=== PATIENT | female | born 1975 | race Caucasian/White ===

== ENCOUNTER 2023-12-06 09:30 | Inpatient (IN) | payer OTHER ==
[~2023-12-06] VITALS: Ht 154.9 cm; Wt 65.8 kg
[2023-12-06] MEDS ORDERED: MECLIZINE HCL 25 MG TABLET ONE (10:20)
[2023-12-06] MEDS ORDERED: ONDANSETRON HCL/PF 4 MG/2 ML VIAL ONE ×2 (10:20→10:40)
[2023-12-06] MEDS: MECLIZINE HCL 25 MG TABLET PO ONE (10:26)
[2023-12-06] MEDS: IV NS 0.9% 1,000 ML BAG IV ONE (10:26)
[2023-12-06] MEDS: ONDANSETRON HCL/PF - ER 4 MG/2 ML VIAL IV ONE (10:26)
[2023-12-06 10:42] LABS: BASOPHILS % (AUTO) 0.8 % (0.0-2.0); EOSINOPHILS # (AUTO) 0.2 K/uL (0.0-0.7); EOSINOPHILS % (AUTO) 3.7 % (0.0-6.0); HEMATOCRIT 39 % (33-45); HEMOGLOBIN 13.4 g/dL (11.5-14.8); LYMPHOCYTES # (AUTO) 1.2 K/uL (0.8-4.8); LYMPHOCYTES % (AUTO) 20.2 % (20.0-44.0); MEAN CORPUSCULAR HEMOGLOBIN 29 PG (26.0-33.0); MEAN CORPUSCULAR HGB CONC 34 g/dl (31.0-36.0); MEAN CORPUSCULAR VOLUME 84 fL (82-100); MONOCYTES # (AUTO) 0.4 K/uL (0.1-1.30); MONOCYTES % (AUTO) 7.1 % (2.0-12.0); NEUTROPHILS # (AUTO) 4.1 K/uL (1.8-8.9); NEUTROPHILS % (AUTO) 68.2 % (43.0-81.0); PLATELET COUNT (AUTO) 307 K/uL (150-450); RED BLOOD CELL COUNT(AUTO) 4.67 MIL/uL (4.0-5.2); RED CELL DISTRIBUTION WIDTH 12.7 % (11.5-15.0)
[2023-12-06 11:09] LABS: CALCIUM, SERUM 8.9 mg/dL (8.5-10.1); CARBON DIOXIDE 27 mmol/L (21-32); CHLORIDE 103 mmol/L (98-107); CREATININE 0.7 mg/dL (0.6-1.3); GLUCOSE 86 mg/dL (74-106); POTASSIUM 4.7 mmol/L (3.5-5.1); SODIUM SERUM 135 mmol/L (136-145); UREA NITROGEN, BLOOD 11 mg/dL (7-18)
[2023-12-06 11:23] LABS: ALANINE AMINOTRANSFERASE 31 U/L (12-78); ALBUMIN 3.6 g/dL (3.4-5.0); ALKALINE PHOSPHATASE 59 U/L (46-116); ASPARTATE AMINOTRANSFERASE 28 U/L (15-37); BILIRUBIN,DIRECT 0.1 mg/dL (0.0-0.2); BILIRUBIN,TOTAL 0.7 mg/dL (0.2-1.0); NT-PRO BNP 89 pg/mL (0-125); TOTAL PROTEIN, SERUM 7.6 g/dL (6.4-8.2)
[2023-12-06] MEDS ORDERED: ASPIRIN 325 MG TABLET ONE ×2 (12:30)
[2023-12-06] MEDS ORDERED: MAGNESIUM HYDROXIDE 30 ML UDC PO PRN (12:30)
[2023-12-06] MEDS ORDERED: ONDANSETRON HCL/PF 4 MG/2 ML VIAL IVP PRN (12:30)
[2023-12-06] MEDS ORDERED: MAG HYDROX/AL HYDROX/SIMETH 30 ML UDC PO PRN (12:30)
[2023-12-06] MEDS ORDERED: ACETAMINOPHEN 325 MG TABLET PO PRN (12:30)
[2023-12-06] MEDS ORDERED: ZOLPIDEM TARTRATE 5 MG TABLET PO PRN (12:30)
[2023-12-06] MEDS ORDERED: Z GUARD REMEDY 4 OZ OINT TP PRN (12:30)
[2023-12-06] MEDS: ASPIRIN 325 MG TABLET PO ONE (12:34)
[2023-12-06 14:20] VITALS: BP 126/67; TEMP 97.5; O2SAT 97
[2023-12-06] MEDS: IV NS 0.9% 1,000 ML IV PRN (15:17)
[2023-12-06 20:00] VITALS: BP 98/58; TEMP 98.6; O2SAT 97
[2023-12-07] VITALS: BP 109/69; TEMP 98; O2SAT 98
[2023-12-07 04:00] VITALS: BP 115/75; TEMP 97.8; O2SAT 96
[2023-12-07 07:29] LABS: BASOPHILS % (AUTO) 0.5 % (0.0-2.0); EOSINOPHILS # (AUTO) 0.2 K/uL (0.0-0.7); HEMATOCRIT 34 % (33-45); HEMOGLOBIN 11.8 g/dL (11.5-14.8); LYMPHOCYTES # (AUTO) 1.7 K/uL (0.8-4.8); LYMPHOCYTES % (AUTO) 25.3 % (20.0-44.0); MEAN CORPUSCULAR HEMOGLOBIN 29 PG (26.0-33.0); MEAN CORPUSCULAR HGB CONC 34 g/dl (31.0-36.0); MEAN CORPUSCULAR VOLUME 85 fL (82-100); MONOCYTES # (AUTO) 0.5 K/uL (0.1-1.30); MONOCYTES % (AUTO) 8.2 % (2.0-12.0); NEUTROPHILS # (AUTO) 4.2 K/uL (1.8-8.9); PLATELET COUNT (AUTO) 262 K/uL (150-450); RED BLOOD CELL COUNT(AUTO) 4.05 MIL/uL (4.0-5.2); RED CELL DISTRIBUTION WIDTH 12.5 % (11.5-15.0); WHITE BLOOD COUNT (AUTO) 6.7 K/uL (4.3-11.0)
[2023-12-07 07:59] LABS: CALCIUM, SERUM 8.1 mg/dL (8.5-10.1); CREATININE 0.6 mg/dL (0.6-1.3); MAGNESIUM 1.9 mg/dL (1.8-2.4); PHOSPHORUS 2.2 mg/dL (2.5-4.9); POTASSIUM 4.1 mmol/L (3.5-5.1)
[2023-12-07 08:00] VITALS: BP 105/67; TEMP 98.3; O2SAT 98
[2023-12-07] MEDS: ASPIRIN 81 MG TAB.CHEW PO SCH (08:54)
[2023-12-07 12:00] VITALS: BP 119/70; TEMP 98.5; O2SAT 98
[2023-12-07] MEDS ORDERED: IOHEXOL-350 100 ML VIAL IV ONE (14:50)
[2023-12-07] MEDS ORDERED: NITROGLYCERIN 0.4 MG/TAB BOTTLE ONE (14:52)
[2023-12-07] MEDS ORDERED: METOPROLOL TARTRATE INJ 5 MG/5 ML AMPUL ONE (14:54)
[2023-12-07] MEDS ORDERED: METOPROLOL TARTRATE INJ 5 MG/5 ML AMPUL IVP ONE (15:00)
[2023-12-07 16:00] VITALS: BP 131/91; TEMP 98.1; O2SAT 98
[2023-12-07] MEDS: K PHOS NEUTRAL 250 MG TABLET PO ONE (16:44)
[2023-12-07] MEDS: MECLIZINE HCL 12.5 MG TABLET PO SCH (20:50)
[2023-12-07 23:42] VITALS: BP 125/62; TEMP 98; O2SAT 98
[2023-12-08] VITALS: BP 130/63; TEMP 98; O2SAT 98
[2023-12-08 04:00] VITALS: BP 129/69; TEMP 98; O2SAT 98
[2023-12-08 07:32] LABS: CALCIUM, SERUM 8.3 mg/dL (8.5-10.1); CREATININE 0.6 mg/dL (0.6-1.3)
[2023-12-08 08:00] VITALS: BP 119/64; TEMP 97.9; O2SAT 95
[2023-12-08] MEDS: METOPROLOL TARTRATE 25 MG TABLET PO SCH (10:54)
[2023-12-08 12:00] VITALS: BP 129/83; TEMP 97.9; O2SAT 98
[2023-12-08] MEDS ORDERED: LORAZEPAM 0.5 MG TABLET PO PRN (12:00)
[2023-12-08] MEDS ORDERED: IV NS 0.9% 250 ML IV ONE (13:11)
[2023-12-08] MEDS ORDERED: IOHEXOL-350 100 ML VIAL IV ONE (13:11)
[2023-12-08] MEDS ORDERED: CT SWABBABLE VALVE TRANS SET 1 EA INFUS.SET MC ONE (13:11)
[2023-12-08 16:00] VITALS: BP 119/73; TEMP 98.4; O2SAT 97
[2023-12-08 19:37] LABS: PREGNANCY TEST URINE QUAL NEGATIVE (NEGATIVE)
[2023-12-09] MEDS ORDERED: MECL-182 PO (08:04)
== END 2023-12-08 18:43 | disposition home or self-care (01) | DRG 201 ==
LOC: ER 09:30 → TELE1 12:58 → MEDSG1 12-08 10:28
PROVIDERS: ADMIT Nurse Practitioner Acute Care; ATTEND Nurse Practitioner Acute Care
DX: I44.7 Left bundle-branch block, unspecified (principal); I21.A1 Myocardial infarction type 2; F43.10 Post-traumatic stress disorder, unspecified; F41.9 Anxiety disorder, unspecified; R42 Dizziness and giddiness
CPT/HCPCS: 36415; 70450-TC; 71045-TC; 75574; 80048-TC; 80061-TC; 80076-TC; 82962-TC; 83735-TC; 83880; 84100-TC; 84484-TC; 84703-TC; 85025-TC; 93307-TC; 97112-TC; 97116-TC; 97530-TC; G0378; J2405; J3490; J7030; J7050; J8597; Q9967